=== PATIENT | female | born 1955 | race Caucasian/White ===

== ENCOUNTER 2016-10-19 12:08 | Emergency (ER) | payer OTHER ==
[~2016-10-19] VITALS: Ht 157.5 cm; Wt 81.5 kg
[~2016-10-19 12:08] MED LIST: BUPR-93 PO; ERGO500050 PO; RIT5 PO
[2016-10-19] MEDS ORDERED: NIAC500T7 PO (12:12)
[2016-10-19 13:46] VITALS: BP 132/86
== END 2016-10-19 13:47 | disposition home or self-care (01) ==
LOC: EMS 12:09
DX: L23.9 Allergic contact dermatitis, unspecified cause (principal); L29.9 Pruritus, unspecified; T46.7X5A Adverse effect of peripheral vasodilators, initial encounter; Y92.89 Other specified places as the place of occurrence of the external cause
CPT/HCPCS: 99283